=== PATIENT | female | born 1965 | race Caucasian/White ===

== ENCOUNTER 2019-05-15 12:05 | Inpatient (IN) | payer OTHER ==
[~2019-05-15] VITALS: Ht 153.7 cm; Wt 50.8 kg
[2019-05-15 12:09] VITALS: BP 139/53
--- NOTE | 2019-05-15 12:45 | NUR ---
PT REFFERED BY PCP FOR RE-EVAL OF LAB VALUES. PER PT, SHE WAS TOLD ONE OF HER LAB VALUES WAS LOW, BUT DOES NOT KNOW WHICH ONE. PT DENIES ANY ABNORMAL SYMPTOMS. BED IN LOW POSITION, SIDE RAIL UP X1
--- NOTE | 2019-05-15 13:30 | NUR ---
DR. KIRBY AT BEDSIDE
[2019-05-15] MEDS ORDERED: NACL 0.9% 1,000 ML IV SCH (13:38)
[2019-05-15 14:28] LABS: HEMOGLOBIN 13.5 g/dL (12.0-16.0); WHITE BLOOD COUNT (AUTO) 8.4 K/uL (4.8-10.8)
[2019-05-15 14:31] LABS: ANION GAP 11.9 (8-16); CARBON DIOXIDE 30.5 mmol/L (21-32); CREATININE 0.8 mg/dL (0.6-1.3); HEMATOCRIT 40.7 % (36-48); MEAN CORPUSCULAR HEMOGLOBIN 31 pg (27-31); MEAN CORPUSCULAR HGB CONC 33 g/dL (33-37); MEAN CORPUSCULAR VOLUME 93.7 fL (80-94); POTASSIUM 3.4 mmol/L (3.5-5.1); RED BLOOD CELL COUNT(AUTO) 4.34 MIL/uL (4.20-5.40); RED CELL DISTRIBUTION WIDTH 15.4 % (11.6-13.7)
[2019-05-15 14:37] LABS: ALBUMIN 3.8 g/dL (3.4-5.0); TOTAL BILIRUBIN 0.3 mg/dL (0.0-1.0)
[2019-05-15 15:22] LABS: PLATELET COUNT (AUTO) 19 K/uL (140-450)
[2019-05-15] MEDS ORDERED: ACETAMINOPHEN 325 MG TAB PO PRN (15:55)
[2019-05-15] MEDS ORDERED: ONDANSETRON 4 MG/2 ML VIAL IM/IVP PRN (15:55)
[2019-05-15] MEDS ORDERED: LORazepam 2 MG/ML VIAL IM/IVP PRN (15:55)
[2019-05-15 16:34] LABS: BARBITURATE, URINE NEG. ng/ml (NEG <=200); BENZODIAZEPINE, URINE NEG. ng/mL (NEG <=200); CANNABINOID, URINE NEG. ng/mL (NEG <=50); COCAINE, URINE NEG. ng/mL (NEG <=300); OPIATE, URINE NEG. ng/mL (NEG <=2000); PHENCYCLIDINE SCREEN,URINE NEG. ng/mL (NEG <=25)
--- NOTE | 2019-05-15 16:35 | NUR ---
PT GOING TO BED 125-B, WAITING FOR THE LIBRARY TECHNICAL ASSISTANT NURSE TO ARRIVE
[2019-05-15 16:45] LABS: APPEARANCE,URINE CLEAR (CLEAR); BILIRUBIN,URINE NEGATIVE (NEGATIVE); BLOOD, URINE NEGATIVE (NEGATIVE); COLOR,URINE YELLOW (YELLOW); LEUKOCYTE ESTERASE ,URINE TRACE (NEGATIVE); NITRITE, URINE NEGATIVE (NEGATIVE); PH,URINE 7.5 (5.0-9.0); UGLUCOSE NEGATIVE (NEGATIVE)
[2019-05-15 16:51] LABS: PROTHROMBIN TIME 10.3 secs (10.8-13.4)
[2019-05-15 17:04] LABS: RBC,URINE NONE SEEN /HPF (0-5); WBC,URINE 0-5 /HPF (0-5)
[2019-05-15] MEDS ORDERED: DEXAMETHASONE 1 MG TAB PO SCH (17:05)
[2019-05-15 17:10] VITALS: BP 137/78
--- NOTE | 2019-05-15 17:10 | NUR ---
RECEIVED REPORT FROM EMERGENCY ROOM NURSE SHERICE FOR CONTINUITY OF CARE. PT IN STABLE CONDITION. RESPIRATIONS EVEN AND UNLABORED. IV ACCESS INTACT AND PATENT. SAFETY MEASURES IN PLACE. BED IN LOW POSITION. WILL CONTINUE TO MONITOR.
--- NOTE | 2019-05-15 17:26 | NUR ---
Patient will be admitted to care of DR. NEWMAN . Admited to TELEMETRY. Will go to room 125B. Belongings list completed. Report to REBECA HENRY.
[2019-05-15 17:30] LABS: CHOL/HDL RATIO 2.5 (1-4.5); FREE T4 (FREE THYROXINE) 0.79 ng/dL (0.76-1.46); MAGNESIUM 1.9 mg/dL (1.8-2.4); PHOSPHORUS 3.8 mg/dL (2.5-4.9); THYROID STIMULATING HORMONE 2.55 uIU/mL (0.34-3.74)
[2019-05-15 17:37] LABS: LYMPHOCYTES % (MANUAL) 33 % (20-46); MONOCYTES % (MANUAL) 7 % (5-12)
--- NOTE | 2019-05-15 18:16 | NUR ---
ULTRASOUND AT BEDSIDE AT THIS TIME. PT IN STABLE CONDITION.
[2019-05-15 18:49] LABS: PROTHROMBIN TIME 10.1 secs (10.8-13.4)
--- NOTE | 2019-05-15 19:20 | NUR ---
GAVE REPORT TO MEMBERSHIP CORRESPONDENT NURSE FOR CONTINUITY OF CARE. PT IN STABLE CONDITION.
--- NOTE | 2019-05-15 19:21 | NUR ---
Received endorsement from AM shift RN; patient A/Ox4, able to make needs known, [place]ican speaking, ambulatory. Patient talking with relatives; introduced self, updated board. No SOB or distress noted, on room air. IV site noted on left forearm, 20 gauge, saline locked. Bed in the lowest position, call light within reach. Initial assessment done. Will continue to monitor.
[2019-05-15 20:00] VITALS: BP 125/71
--- NOTE | 2019-05-15 20:40 | NUR ---
Vitals taken, no distress noted.
--- NOTE | 2019-05-15 22:10 | NUR ---
Rounds done; patient resting comfortably, visible chest rise and fall noted.
--- NOTE | 2019-05-15 23:20 | NUR ---
Vitals taken, no distress noted.
[2019-05-16] VITALS: BP 128/78
--- NOTE | 2019-05-16 01:40 | NUR ---
Checks made; patient asleep, eyes closed, visible chest rise and fall noted.
--- NOTE | 2019-05-16 02:40 | NUR ---
Rounds done; patient resting comfortably, visible chest rise and fall noted.
[2019-05-16 04:00] VITALS: BP 133/78
--- NOTE | 2019-05-16 04:45 | NUR ---
Patient asleep, eyes closed, visible chest rise and fall noted.
--- NOTE | 2019-05-16 06:14 | NUR ---
Vitals stable, due meds given. Will endorse to AM shift RN for continuity of care.
[2019-05-16 07:07] LABS: ANION GAP 12.1 (8-16); CARBON DIOXIDE 28.1 mmol/L (21-32); CREATININE 0.7 mg/dL (0.6-1.3); POTASSIUM 4.2 mmol/L (3.5-5.1)
--- NOTE | 2019-05-16 07:10 | NUR ---
RECEIVED REPORT FROM CHARGE AUTHORIZER NURSE JENNY FOR CONTINUITY OF CARE. PT IN STABLE CONDITION. RESPIRATIONS EVEN AND UNLABORED, ROOM AIR. IV INTACT AND PATENT. SAFETY MEASURES IN PLACE. BED IN LOW POSITION. CALL LIGHT AT BEDSIDE. FREQUENT ROUNDS. WILL CONTINUE TO MONITOR.
[2019-05-16 07:17] LABS: MAGNESIUM 1.8 mg/dL (1.8-2.4); PHOSPHORUS 3.9 mg/dL (2.5-4.9)
[2019-05-16 08:00] VITALS: BP 132/82
[2019-05-16 08:04] LABS: HEMATOCRIT 40.8 % (36-48); HEMOGLOBIN 13.3 g/dL (12.0-16.0); RED BLOOD CELL COUNT(AUTO) 4.32 MIL/uL (4.20-5.40); WHITE BLOOD COUNT (AUTO) 5.9 K/uL (4.8-10.8)
[2019-05-16 08:05] LABS: MEAN CORPUSCULAR HEMOGLOBIN 31 pg (27-31); MEAN CORPUSCULAR HGB CONC 33 g/dL (33-37); MEAN CORPUSCULAR VOLUME 94.6 fL (80-94); RED CELL DISTRIBUTION WIDTH 15.6 % (11.6-13.7)
[2019-05-16 08:06] LABS: BASOPHILS % (AUTO) 0.7 % (0.0-2.0); EOSINOPHILS # (AUTO) 0.1 K/uL (0-0.4); EOSINOPHILS % (AUTO) 2.2 % (0.0-4.0); LYMPHOCYTES % (AUTO) 33.4 % (20.5-51.1); MONOCYTES # (AUTO) 0.6 K/uL (0.8-1.0); MONOCYTES % (AUTO) 10.2 % (1.7-9.3); NEUTROPHILS # (AUTO) 3.2 K/uL (1.8-7.7); NEUTROPHILS % (AUTO) 53.5 % (42.2-75.2)
[2019-05-16 08:09] LABS: PLATELET COUNT (AUTO) 111 K/uL (140-450)
--- NOTE | 2019-05-16 08:10 | NUR ---
DECADRON 40 TABS INCORRECT DOSAGE AT THIS TIME. NOT A MISS DOSE. PHARMACY AWARE. WILL FOLLOW UP.
--- NOTE | 2019-05-16 08:34 | NUR ---
PATIENT HAS BEEN SCREENED AND CATEGORIZED LOW NUTRITION RISK. PATIENT WILL BE SEEN WITHIN 7 DAYS OF ADMISSION. 05/21/[address]
[2019-05-16] MEDS ORDERED: DEXAMETHASONE 4 MG TAB PO SCH (09:00)
--- NOTE | 2019-05-16 09:00 | NUR ---
CALLED PHARMACY DECADRON 40MG MEDICATION NOT IN PIXIS FOR ISSUE TO PT AT THIS TIME.
--- NOTE | 2019-05-16 09:15 | NUR ---
GAVE ORDERED DUE MEDICATIONS AT THIS TIME. PT TOLERATED WELL. BED IN LOW POSITION. CALL LIGHT AT BEDSIDE. WILL CONTINUE TO MONITOR.
--- NOTE | 2019-05-16 11:33 | NUR ---
PT TALKING TO FAMILY AT BEDSIDE. RESPIRATIONS EVEN AND UNLABORED. BED IN LOW POSITION. CALL LIGHT AT BEDSIDE. WILL CONTINUE TO MONITOR.
[2019-05-16 12:00] VITALS: BP 130/86
--- NOTE | 2019-05-16 13:22 | NUR ---
PT DRESSING FOR UPCOMING DISCHARGE. FAMILY AT BEDSIDE.
[2019-05-16 14:17] LABS: BASOPHILS % (AUTO) 0.3 % (0.0-2.0); EOSINOPHILS % (AUTO) 0.3 % (0.0-4.0); HEMATOCRIT 42.1 % (36-48); HEMOGLOBIN 13.6 g/dL (12.0-16.0); LYMPHOCYTES # (AUTO) 0.8 K/uL (2.5-16.5); LYMPHOCYTES % (AUTO) 8.2 % (20.5-51.1); MEAN CORPUSCULAR HEMOGLOBIN 30 pg (27-31); MEAN CORPUSCULAR HGB CONC 32 g/dL (33-37); MEAN CORPUSCULAR VOLUME 94.4 fL (80-94); MONOCYTES # (AUTO) 0.1 K/uL (0.8-1.0); NEUTROPHILS # (AUTO) 8.7 K/uL (1.8-7.7); NEUTROPHILS % (AUTO) 90.2 % (42.2-75.2); RED BLOOD CELL COUNT(AUTO) 4.46 MIL/uL (4.20-5.40); RED CELL DISTRIBUTION WIDTH 15.6 % (11.6-13.7); WHITE BLOOD COUNT (AUTO) 9.7 K/uL (4.8-10.8)
--- NOTE | 2019-05-16 14:20 | NUR ---
GAVE DISCHARGE INSTRUCTIONS PT VERBALIZED UNDERSTANDING. REMOVED IV, LUMEN INTACT. REMOVED ID BAND. PT REFUSED WHEELCHAIR. PT ESCORTED TO LOBBY WHERE FAMILY IS WAITING WITH VEHICLE. PT IN STABLE CONDITION.
[2019-05-16 14:32] LABS: PLATELET COUNT (AUTO) 151 K/uL (140-450)
[2019-05-17 08:07] LABS: FOLIC ACID 18.2 ng/mL (>3.0)
[2019-05-18 08:07] LABS: HEPATITIS A ANTIBODY IGM Negative (Negative); HEPATITIS B CORE AB TOTAL Negative (Negative); HEPATITIS B SURFACE ANTIBODY Non Reactive (.); HEPATITIS B SURFACE ANTIGEN Negative (Negative)
== END 2019-05-16 14:20 | disposition home or self-care (01) | DRG 813 ==
LOC: MED 12:05 → MMU 15:58
PROVIDERS: ADMIT General Practice; ATTEND General Practice
DX: D69.6 Thrombocytopenia, unspecified (principal); E87.0 Hyperosmolality and hypernatremia; E87.6 Hypokalemia
CPT/HCPCS: 36415; 71045; 76700; 80048; 80053; 80305; 81001; 81025; 82150; 82607; 82746; 83036; 83690; 83735; 83880; 84100; 84134; 84439; 84443; 84484; 85025; 85379; 85384; 85610; 85730; 86704; 86706; 86708; 86709; 86803; 86886; 86900; 86901; 87081; 87340; 87804; 96360; 99285; G0378; Q0092